=== PATIENT | female | born 1960 | race Caucasian/White ===

== ENCOUNTER 2018-05-03 09:05 | Outpatient (CLI) | payer OTHER ==
--- NOTE | 2018-05-03 16:26 | MMO ---
Bilateral MAMMO Bilat Screen DDI. CLINICAL HISTORY: Patient is 58 years old and is seen for screening. The patient has no family history of breast cancer. The patient has no personal history of cancer. VIEWS: The views performed were: bilateral craniocaudal and bilateral mediolateral oblique. FILMS COMPARED: The present examination has been compared to prior imaging studies performed at [facility] on 02/28/2009, 08/28/2009, 03/05/2010 and 04/29/2011. This study has been interpreted with the assistance of computer-aided detection. MAMMOGRAM FINDINGS: The breasts are almost entirely fat. There are no suspicious masses, suspicious calcifications, or new areas of architectural distortion. IMPRESSION: THERE IS NO MAMMOGRAPHIC EVIDENCE OF MALIGNANCY. A ROUTINE FOLLOW-UP MAMMOGRAM IN 1 YEAR IS RECOMMENDED. ACR BI-RADS Category 1 - Negative MAMMOGRAPHY NOTE: 1. A negative mammogram report should not delay a biopsy if a dominant of clinically suspicious mass is present. 2. Approximately 10% to 15% of breast cancers are not detected by mammography. 3. Adenosis and dense breasts may obscure an underlying neoplasm.
== END 2018-05-03 09:06 | disposition home or self-care (01) ==
LOC: SCSMAMMO 09:05
PROVIDERS: ATTEND Family Medicine
DX: Z12.31 Encounter for screening mammogram for malignant neoplasm of breast (principal)
CPT/HCPCS: 77067

== ENCOUNTER 2018-06-20 08:28 | Day surgery (SDC) | payer OTHER ==
[2018-06-19 15:01] VITALS: BMI 31.8
[2018-06-20] MEDS ORDERED: PROPOFOL 200 MG/20 ML VIAL ONE (10:14)
--- NOTE | 2018-06-20 16:18 | OP ---
DATE OF PROCEDURE: 06/20/2018 PROCEDURE PERFORMED: Esophagogastroduodenoscopy (diagnostic). INDICATION FOR PROCEDURE: Longstanding history of GERD, screening for Cerda esophagus. DESCRIPTION OF PROCEDURE: After the risks and benefits of the procedure were explained to the patient including risks of bleeding, infection, perforation, reaction to anesthesia, aspiration and/or pain, informed consent was obtained. The patient was then taken to the endoscopy suite, where deep sedation was administered via propofol and anesthesia support. Once adequate sedation was achieved, the standard gastroscope was introduced into the mouth with intubation of the esophagus, stomach, and the proximal small intestines with the findings listed below. The patient tolerated the procedure well with no immediate perioperative complications. Upon completion of the procedure, all equipment was removed from the patient and the patient was transferred to Day Stay in satisfactory condition. FINDINGS: Esophagus: Normal-appearing mucosa was seen in the proximal, mid, and distal esophagus. An irregular appearing Z-line was seen at the gastroesophageal junction without any evidence of salmon-colored mucosa extending beyond this nor any nodularity to suggest inflammation or transformation. There was no evidence of erosions, ulcerations, mass, lesions, or active/recent bleeding. Normal-appearing mucosa was seen in the gastric cardia, fundus, body, greater curvature, antrum, and incisura. There was no evidence of erosions, ulcerations, mass, lesions, or active/recent bleeding. Duodenum: Normal-appearing mucosa was seen in both the duodenal bulb and second portion of the duodenum. There was no evidence of erosions, ulcerations, mass, lesions, or active/recent bleeding. IMPRESSION: 1. Normal upper endoscopy with irregular Z-line at the gastroesophageal junction (normal variant). 2. No endoscopic evidence of acid reflux seen during this examination. RECOMMENDATIONS: 1. Would have the patient follow up in the GI clinic in 2 to 3 weeks for followup on acid reflux symptoms. 2. Would restart the patient on omeprazole 40 mg daily for nonerosive reflux disease. 3. Would maintain strict anti-reflux precautions including avoidance of trigger foods. Job ID: [id number]
== END 2018-06-20 11:45 | disposition home or self-care (01) ==
LOC: SDC 08:28
PROVIDERS: ATTEND Internal Medicine
PROC: 0DJ08ZZ Inspection of Upper Intestinal Tract, Via Natural or Artificial Opening Endoscopic (ICD-10-PCS; principal; 2018-06-20)
DX: K21.9 Gastro-esophageal reflux disease without esophagitis (principal)
CPT/HCPCS: J2704

== ENCOUNTER 2018-08-16 12:59 | Outpatient (CLI) | payer OTHER ==
[~2018-08-16 12:59] MED LIST: Gadobenate Dimeglumine 529 MG/1 ML (20ML VIAL) ONE
--- NOTE | 2018-08-16 14:38 | MRI ---
MRI Brain W WO Con: 08/16/2018 12:00 AM CLINICAL HISTORY: Left cerebellar mass. Left-sided headache. COMPARISON: None. FINDINGS: Extra axial spaces: Extra-axial mass effect present at the left posterior fossa. Mass demonstrates pe ripheral FLAIR hyperintensity, and is relatively T1 and T2 isointense, with central susceptibility and FLAIR/T1/T2 hypointensity. There is diffuse enhancement of the mass with relative sparing at the central hypointense portion. Mass demonstrates a broad dural base, and measures 3.3 cm transverse x 2.3 cm AP x 2.3 cm craniocaudal Acute infarction: None. Ventricular system: Normal in size and morphology for the patient's age. Basal cisterns: Normal. Cerebral parenchyma: Mild periventricular white matter signal alteration and foci of signal abnormali ty of the bilateral centrum semiovale, indicative of mild chronic ischemic disease. Midline shift: None. Cerebellum: Effacement of left cerebellar hemisphere by adjacent extra-axial mass Brainstem: Normal. Paranasal sinuses:Clear IMPRESSION:Extra-axial mass with broad dural base, centered at the posterolateral left aspect of the left posterior cranial fossa with associated regional mass effect upon the left cerebellar hemisphere, which is most consistent with meningioma. Recommend correlation with prior imaging to ens ure size stability. Given headache of new onset, and mass effect related to this finding, neurosurgical consultation is warranted. Transcribed Date/Time: 08/16/2018 4:09 PM
== END 2018-08-16 13:00 | disposition home or self-care (01) ==
LOC: BICMRI 12:59
PROVIDERS: ATTEND Family Medicine
DX: G93.89 Other specified disorders of brain (principal)
CPT/HCPCS: 70553; A9577

== ENCOUNTER 2019-03-29 12:22 | Outpatient (CLI) | payer OTHER ==
--- NOTE | 2019-03-29 13:39 | MRI ---
MR the lumbar spine without contrast: 03/29/2019 History: Low back pain with radiculopathy COMPARISON: None. TECHNIQUE: Multiplanar multisequence MR images were obtained of lumbar spine without IV contrast FINDINGS: On the basis of 5 lumbar type vertebral bodies, conus medullaris terminates at [id number] level. Sagittal STIR imaging demonstrates no focal area of osseous marrow edema. T12-L1:No central canal or neural foraminal stenosis. Mild facet hypertrophy and disc desiccation. L1-2:Disc desiccation and mild bilateral facet hypertrophy with no central canal or neural foraminal stenosis. L2-3:Mild bilateral facet hypertrophy with no significant central canal or neural foraminal stenosis. Disc desiccation. L3-4:Disc desiccation with mild bilateral facet hypertrophy. No significant central canal or neural f oraminal stenosis. L4-5:There is disc desiccation with mild disc bulge and mild central canal stenosis. Bilateral facet hypertrophy. No significant neural foraminal stenosis on either side. L5-S1:Bilateral facet hypertrophy. No significant central canal or neural foraminal stenosis. Image retroperitoneal structures demonstrateno acute findings. IMPRESSION: Lumbar spine degenerative change as described above.
--- NOTE | 2019-03-29 14:22 | MRI ---
MRI Cervical spine without contrast: HISTORY: Cervical pain with pain radiating to bilateral shoulders. Patient states neck pain for years. COMPARISON: None FINDINGS: There is partial visualization of an extra-axial mass in the left posterior fossa with signal charact eristics similar to prior MRI of the brain on 08/16/2018. Findings on that examination were suggestive of a meningioma. No significant cord signal abnormality. Paravertebral soft tissues have a normal appearance and normal signal intensity. Degenerative changes are seen in the cervical spine. C1-2:No significant stenosis. C2-3: There is no disc bulge or disc herniation. The central spinal canal and neural foramina are pat ent. C3-4: Mild disc osteophyte complex is present with slight effacement of the ventral subarachnoid spac e. Neural foramina are patent. C4-5: Mild broad-based disc osteophyte complex is present which narrows the ventral subarachnoid spac e without encroachment on the spinal cord. Facet degenerative changes are present primarily on the left. There is mild uncinate process hypertrophy. Mild right and [id number] left-sided neural f oraminal narrowing is noted. C5-6: Loss of intervertebral disc height is present with broad-based disc osteophyte complex present. Moderate central canal narrowing is present at this level with flattening of the anterior aspect of the spinal cord. Moderate bilateral neural foraminal narrowing is present. C6-7: Mild disc osteophyte complex is present. This results in generalized narrowing of the central s deedee canal. Mild bilateral neural foraminal narrowing is present. C7-T1: Minimal disc osteophyte complex. Central spinal canal and neural foramina are patent. IMPRESSION: 1. Partial visualization of a left posterior fossa extra-axial mass. This mass was better evaluated o n MRI of the brain in 2019. Imaging characteristics on prior MRI brain more suggestive of a meningioma. Resultant mass effect on the left cerebellar hemisphere is again partially visualized. 2. Degenerative changes in the cervical spine with findings greatest at the C5-6 level.
== END 2019-03-29 12:23 | disposition home or self-care (01) ==
LOC: BICMRI 12:22
PROVIDERS: ATTEND Family Medicine
DX: M47.22 Other spondylosis with radiculopathy, cervical region (principal); R22.0 Localized swelling, mass and lump, head; M47.26 Other spondylosis with radiculopathy, lumbar region; M47.27 Other spondylosis with radiculopathy, lumbosacral region
CPT/HCPCS: 72141; 72148